=== PATIENT | female | born 1995 | race Caucasian/White ===

== ENCOUNTER 2017-06-28 13:29 | Emergency (ER) | payer BC, OTHER ==
[2017-06-28] MEDS ORDERED: Ondansetron 4 MG Tab.DIS PO ONE (13:47)
[2017-06-28] MEDS ORDERED: HYDROmorphone 1 MG/ML Syringe IM ONE (13:47)
--- NOTE | 2017-06-28 13:47 | EDM.PDOC ---
ED HPI GENERAL MEDICAL PROBLEM - General Chief Complaint: Back Pain or Injury Stated Complaint: BACK PAIN Time Seen by Provider: 06/28/17 13:42 Source of Information: Reports: Patient History Limitations: Reports: No Limitations - History of Present Illness INITIAL COMMENTS - FREE TEXT/NARRATIVE: HISTORY AND PHYSICAL: []21-year-old female presenting with right sided back pain History of Present Illness: []Pain has been present for the last 4 days, she awakened with it no injury noted. she saw the chiropractor Thursday and has another appointment scheduled Thursday (tomorrow) Concerned that she has been having nausea vomited twice at home today bowel movement on Thursday and then yesterday(thursday) Pain has come and gone since she had a baby Review of Systems: As per history of present illness and below otherwise all systems reviewed and negative. Past medical history: As per history of present illness and as reviewed below otherwise noncontributory. Surgical history: As per history of present illness and as reviewed below otherwise noncontributory. Social history: No reported history of drug or alcohol abuse. Family history: As per history of present illness and as reviewed below otherwise noncontributory. Physical exam: Alert female who is crying all follows directions well answers questions in full sentences without any shortness of breath. HEENT: Atraumatic, normocehpalic, pupils reactive, negative for conjunctival pallor or scleral icterus, mucous membranes moist, throat clear, neck supple, nontender, trachea midline. Lungs: Clear to auscultation, breath sounds equal bilaterally, chest non tender. Shallow breath sounds Heart: S1S2, regular, negative for clicks, rubs, or JVD. Abdomen: Soft, nondistended, nontender. Negative for masses or hepatossplenmegaly. Negative for costovertebral tenderness. Light palpation across the vertebrae did not elicit exquisite pain just to the right 2 fingerbreadths and her pain was at that point. Pelvis: Stable nontender. Genitourinary: Deferred. Rectal: Deferred Extremities: Atraumatic, negative for cords or calf pain. Neurovascular unremarkable. Neuro: Awake, alert, oriented. Cranial nerves II through XII unremarkable. Cerebellum unremarkable. Motor and sensory unremarkable throughout. Exam nonfocal. Patient improved after treatment. Pain level reduced to 3/10. Note given off work for 48 hours. Diagnostics: [] Therapeutics: []Zofran oh grams ODT Dilaudid 0.5 IM Impression: []Chronic back pain Plan: []Discharge to home Zofran 4 mg ODT when necessary nausea up to 3 times daily Diclofenac milligrams twice a day Follow-up with your primary care provider Dr. Moeller see at the clinic this next week Definitive disposition and diagnosis as appropriate pending reevaluation and review of above. Onset: Gradual Duration: Day(s): (4), Getting Worse Location: Reports: Back Right Back Pain Score (Numeric/FACES): 9 - Related Data Allergies Allergy/AdvReac Type Severity Reaction Status Date / Time cefaclor [From [facility]] Allergy Rash Verified 06/28/17 13:44 Home Meds: Home Meds Diclofenac Sodium [IJD: Diclofenac Sodium] 75 mg PO .TWICE DAILY W MEALS #20 tab.ec 06/28/17 [Rx] Ondansetron [Zofran ODT] 4 mg PO Q6H PRN #12 tab.dis 06/28/17 [Rx] ED ROS GENERAL - Review of Systems Review Of Systems: ROS reveals no pertinent complaints other than HPI. ED EXAM,LOWER BACK PAIN/INJURY - Physical Exam Exam: See Below (See dictation) Course - Vital Signs Last Recorded V/S: Last Vital Signs Temp 36.0 C 06/28/17 13:38 Pulse 89 06/28/17 13:38 Resp 18 06/28/17 13:38 BP 140/89 06/28/17 13:38 Pulse Ox 98 06/28/17 13:38 - Orders/Labs/Meds Meds: Medications Discontinued Medications Generic Name Dose Route Start Last Admin Trade Name Freq PRN Reason Stop Dose Admin Hydromorphone HCl 0.5 mg 06/28/17 13:47 06/28/17 14:27 Dilaudid IM 06/28/17 13:48 0.5 mg ONETIME ONE Administration Ondansetron HCl 4 mg 06/28/17 13:47 06/28/17 14:26 Zofran Odt PO 06/28/17 13:48 4 mg ONETIME ONE Administration Departure - Departure Time of Disposition: 15:02 Disposition: Home, Self-Care 01 Condition: Good Clinical Impression: Right-sided low back pain without sciatica Qualifiers: Chronicity: acute Qualified Code(s): M54.5 - Low back pain - Discharge Information Prescriptions: Diclofenac Sodium [IJD: Diclofenac Sodium] 75 mg PO .TWICE DAILY W MEALS #20 tab.ec Ondansetron [Zofran ODT] 4 mg PO Q6H PRN #12 tab.dis PRN Reason: Nausea Instructions: Back Pain, Adult, [id number], Pain Medicine Instructions, Easy- to-Read Referrals: PCP,None [Primary Care Provider] - Forms: ED Department Discharge Additional Instructions: The following information is given to patients seen in the emergency department who are being discharged to home. This information is to outline your options for follow-up care. We provide all patients seen in our emergency department with a follow-up referral. The need for follow-up, as well as the timing and circumstances, are variable depending upon the specifics of your emergency department visit. If you don't have a primary care physician on staff, we will provide you with a referral. We always advise you to contact your personal physician following an emergency department visit to inform them of the circumstance of the visit and for follow-up with them and/or the need for any referrals to a consulting specialist. The emergency department will also refer you to a specialist when appropriate. This referral assures that you have the opportunity for followup care with a specialist. All of these measure are taken in an effort to provide you with optimal care, which includes your followup. Under all circumstances we always encourage you to contact your private physician who remains a resource for coordinating your care. When calling for followup care, please make the office aware that this follow-up is from your recent emergency room visit. If for any reason you are refused follow-up, please contact the [facility] emergency department at and asked to speak to the emergency department charge nurse. He was found to have acute back pain and chronic condition Zofran ODT 4 mg every 6 hours when necessary nausea/vomiting Diclofenac 75 mg twice a day when necessary pain over 12 no refill Follow-up with Dr. Giles this week Note has been given to be off work 48 hours heat packs alternating with ice to your back You may need a referral to physical therapy
== END 2017-06-28 15:17 | disposition home or self-care (01) ==
LOC: MW.ED 13:29
DX: G89.29 Other chronic pain (principal); M54.5 Low back pain; Z88.1 Allergy status to other antibiotic agents; Z79.1 Long term (current) use of non-steroidal anti-inflammatories (NSAID)
CPT/HCPCS: 96372; 99283; A9270; J1170

== ENCOUNTER 2022-09-17 20:53 | Emergency (ER) | payer BC, MEDICAID, OTHER ==
[2022-09-17] MEDS ORDERED: Doxycycline 100 MG Cap PO ONE (21:40)
== END 2022-09-17 22:07 | disposition home or self-care (01) ==
LOC: MW.ED 20:53
DX: J01.00 Acute maxillary sinusitis, unspecified (principal); Z98.890 Other specified postprocedural states; Z88.1 Allergy status to other antibiotic agents
CPT/HCPCS: 99282; A9270; 99283